=== PATIENT | female | born 1990 | race Caucasian/White ===

== ENCOUNTER 2018-01-07 04:16 | Emergency (ER) | payer OTHER ==
[2018-01-07] MEDS ORDERED: PROMETHAZINE HCL 25 MG/ML VIAL IM ONE (05:12)
[2018-01-07 05:15] VITALS: BP 123/74
--- NOTE | 2018-01-07 05:28 | ED Physician Documentation ---
General Adult - HISTORIAN Historian: patient - HPI Stated Complaint: "I have Diarrhea, Nausea and my arms are itching". Chief Complaint: General Adult Additional Information: Diarrhea for 2-3 days. Nausea today. Both daughters with nausea and vomiting; one of these daughters has diarrhea. No fever or blood in stools. Urinating as much as usual. No other modifying factors or associated signs. No one else at home sick. Pruritic rash on arms and at waistline for two days. Moved to an apartment with brother and his family a week ago. No one else in home has itching or rash. No treatment of either complaint attempted. No other modifying factors or associated signs. - ROS CONST: denies: fever - PAST HX Past History: other (Bipolar) Surgeries/Procedures: other (T&A, left knee arthroscopy, PE tubes) Allergies/Adverse Reactions: Allergies Allergy/AdvReac Type Severity Reaction Status Date / Time No Known Allergies Allergy Verified 07/25/14 08:36 Home Medications: Ambulatory Orders Medication Instructions Recorded Vits96/Iron Fum/Folic 1 tab PO D 04/16/14 [ Tablet] Promethazine HCl [Phenergan] 25 mg RC Q8 #30 supp.rect 04/16/14 Cefdinir [Omnicef] 300 mg PO BID #20 capsule 07/25/14 - SOCIAL HX Smoking History: non-smoker Alcohol Use: occasionally Drug Use: none (denies) - FAMILY HX Family History: Yes (daughters with nausea and vomiting) - VITAL SIGNS Vital Signs: Vital Signs Temp Pulse Resp BP Pulse Ox 98.3 F 65 16 123/74 96 01/07/18 04:25 01/07/18 04:25 01/07/18 04:25 01/07/18 04:25 01/07/18 04:25 - REVIEWED ASSESSMENTS Nursing Assessment Reviewed: Yes Vitals Reviewed: Yes Progress - Progress Progress: sent with paper scripts for compazine 5 mg tabs #10, 5 mg po q6-8H prn nausea and Elimite 60 Gm tube (two applications). ED Results Lab/Radiology - Orders Orders: ED Orders Category Date Time Status Promethazine HCl [Phenergan] Med 01/07/18 05:12 Discontinued 25 mg IM NOW ONE General Adult Physical Exam - PHYSICAL EXAM GENERAL APPEARANCE: mild distress EENT: eye inspection normal, ENT inspection normal, pharynx normal NECK: normal inspection, supple RESPIRATORY: no resp distress, breath sounds normal CVS: reg rate & rhythm, heart sounds normal ABDOMEN: soft, normal bowel sounds, no distension, non-tender BACK: normal inspection, no CVA tenderness, other (no vertebral tenderness) SKIN: warm/dry, normal color, other (scattered 2-3 mm pink maculopapular lesions on arms, left posterior weaistline, left posterolateral thorax, with some excoriations) EXTREMITIES: normal range of motion (gait and stance), no evidence of injury NEURO: CN's nml as tested, motor nml, sensation nml Discharge Clincal Impression: Scabies Diarrhea Qualifiers: Diarrhea type: presumed infectious Qualified Code(s): R19.7 - Diarrhea, unspecified Referrals: Padmini Durham MD [Primary Care Provider] - 2 Days Additional Instructions: Return to the ER if you cannot urinate for 8 hours or more, or if your condition worsens. Condition: Fair Disposition: 01 HOME, SELF-CARE Decision to Admit: NO Decision Time: 05:30
== END 2018-01-07 05:45 | disposition home or self-care (01) ==
LOC: ED 04:16
DX: B86 Scabies (principal); R19.7 Diarrhea, unspecified
CPT/HCPCS: 96372; 99283; J2550